=== PATIENT | female | born 1995 | race Caucasian/White ===

== ENCOUNTER 2018-04-01 18:49 | Emergency (ER) | END 2018-04-01 22:38 | disposition home or self-care (01) ==

== ENCOUNTER 2018-04-23 23:03 | Emergency (ER) | END 2018-04-24 01:30 | disposition home or self-care (01) ==

== ENCOUNTER 2018-05-25 09:17 | Emergency (ER) | payer BC ==
[~2018-05-25] VITALS: Ht 167.6 cm; Wt 95.2 kg
[~2018-05-25 09:17] MED LIST: ALBU18HF INHALATION; AMOX1TAB10 PO; GUAI-227 PO; IBUP800T48 PO; PRED20TA PO
[2018-05-25 09:20] VITALS: Ht 167.6 cm; Wt 95.2 kg
[2018-05-25] MEDS ORDERED: IPRATROPIUM (NEB) 0.5 MG/2.5 ML AMP INH STA (09:32)
[2018-05-25] MEDS ORDERED: LEVALBUTEROL (NEB) 1.25 MG/0.5 ML AMP INH STA (09:32)
[2018-05-25] MEDS ORDERED: SOD CHLORIDE 0.9% 1,000 ML IV ONE (10:00)
[2018-05-25] MEDS ORDERED: METHYLPRED. NA SUCC 250 MG in DEXTROSE 5% 50 ML IV ONE (10:00)
[2018-05-25] MEDS ORDERED: ACETAMINOPHEN 325 MG TAB PO ONE (11:00)
[2018-05-25] MEDS ORDERED: IBUPROFEN 600 MG TAB PO ONE (11:00)
[2018-05-25] MEDS ORDERED: CEFTRIAXONE 1 GM/50 ML (PMX) 50 ML IVPB ONE (11:30)
[2018-05-25] MEDS ORDERED: ALBU18HF INHALATION (13:04)
[2018-05-25] MEDS ORDERED: PRED20TA PO (13:04)
[2018-05-25] MEDS ORDERED: AMOX500C2 PO (13:04)
[2018-05-25] MEDS ORDERED: AZIT250T PO (13:04)
[2018-05-25 13:22] VITALS: BP 108/72; PULSE 128; RESP 24
--- NOTE | 2018-05-25 14:49 | ERD ---
ER Documentation Chief Complaint Chief Complaint Complains of SOB Hx of Asthma HPI 22-year-old female patient no significant past medical history presents the ED complaining of cough, wheezing that started last night. Patient reports that she has been here previously for similar symptoms. Reports that she has not followed up with her primary care physician. Denies any fever, chills, nausea, vomiting, diarrhea, neck stiffness. Patient denies any recent travel. Denies taking control. Denies any diagnosis of malignancy. Denies any smoking, alcohol use, drug use. ROS All systems reviewed and are negative except as per history of present illness. Medications Home Meds Active Scripts Albuterol Sulfate* (Ventolin HFA*) 18 Gm Hfa.aer.ad, 2 PUFF INHALATION Q4H, #1 INHALER Prov:UZMA GOOD PA-C 05/25/18 Prednisone* (Prednisone*) 20 Mg Tab, 40 MG PO DAILY for 4 Days, TAB Prov:UZMA GOOD PA-C 05/25/18 Azithromycin* (Zithromax*) 250 Mg Tablet, 250 MG PO .ZPACK DIRECTED, #6 TAB TAKE 500 MG (2 TABS) THE FIRST DAY THEN 250 MG (1 TAB) DAYS 2-5 Prov:UZMA GOOD PA-C 05/25/18 Amoxicillin* (Amoxicillin*) 500 Mg Cap, 1 G PO TID for 10 Days, CAP Prov:UZMA GOOD PA-C 05/25/18 Amoxicillin/Potassium Clav (Amox-Clav 875-125 mg Tablet) 875-125 mg Tab, 1 TAB PO BID for 10 Days, #20 TAB Prov:NICK CASTELLON 04/24/18 Ibuprofen* (Motrin*) 800 Mg Tab, 800 MG PO Q6H PRN for PAIN AND OR ELEVATED TEMP, #30 TAB Prov:NICK CASTELLON 04/24/18 Prednisone* (Prednisone*) 20 Mg Tab, 40 MG PO DAILY for 4 Days, TAB Prov:NICK CASTELLON 04/24/18 Guaifenesin-Dextromethorphan* (Robafen* DM) 100MG/10MG/5ML Liquid, 5 ML PO Q6H PRN for COUGH, #120 ML Prov:NICK CASTELLON 04/24/18 Albuterol Sulfate* (Ventolin HFA*) 18 Gm Hfa.aer.ad, 2 PUFF INHALATION Q4H, #1 INHALER Prov:ALFONSO,KELLY 04/01/18 Prednisone* (Prednisone*) 20 Mg Tab, 40 MG PO DAILY for 4 Days, TAB Prov:ALFONSO,KELLY 04/01/18 Allergies Allergies: Coded Allergies: No Known Allergy (Unverified , 02/21/12) PMhx/Soc History of Surgery: No Anesthesia Reaction: No Hx Neurological Disorder: No Hx Respiratory Disorders: No Hx Cardiac Disorders: No Hx Psychiatric Problems: No Hx Miscellaneous Medical Probl: Yes (bronchitis,sinus infection) Hx Alcohol Use: No Hx Substance Use: No Hx Tobacco Use: No Smoking Status: Never smoker FmHx Family History: No diabetes, No coronary disease Physical Exam Vitals Vital Signs Date Temp Pulse Resp B/P (MAP) Pulse Ox O2 O2 Flow FiO2 Time Delivery Rate 05/25/18 99.7 128 24 108/72 95 Room Air 13:22 (84) 05/25/18 100.2 139 26 105/57 93 Room Air 12:38 (73) 05/25/18 100.8 147 19 96 Room Air 11:51 05/25/18 101.0 10:50 05/25/18 101.0 10:50 05/25/18 101.0 141 20 123/79 96 10:42 (94) 05/25/18 117 22 94 21 10:01 05/25/18 100.0 122 20 134/85 91 09:20 (101) Physical Exam Const: Dik-gbe-hoailvlto, well-nourished. In no acute distress. Head: Atraumatic, normocephalic Eyes: Normal Conjunctiva without injection. No purulent discharge. PERRL. EOMI ENT: Normal external ear. Ear canal without erythema. Tympanic membrane pearly chairez without effusion or bulging. Nasal canal clear with normal turbinates. Moist oropharynx without tonsillar exudates. Non-erythematous pharynx. Uvula midline. No drooling. No trismus. Neck: Full range of motion. No meningismus. No cervical lymphadenopathy. Resp: Clear to auscultation bilaterally. No wheezing, rhonchi, rales, or crackles. No accessory muscle use. No retractions. Cardio: Regular rate and rhythm. No murmurs, rubs or gallops. Abd: Soft, non tender, non distended. Normal bowel sounds. No palpable masses. No rebound tenderness. No guarding. Skin: No petechiae or rashes Back: No midline tenderness. No CVA tenderness. Ext: No cyanosis, or edema. Neur: Awake and alert. Psych: Normal Mood and Affect Results 24 hrs Laboratory Tests Test 05/25/18 09:43 POC Beta HCG, Qualitative NEGATIVE Current Medications Medications Dose Sig/Emerson Start Time Status Last (Trade) Ordered Route PRN Stop Time Admin Dose Reason Admin 50 ml @ ONCE ONCE 05/25/18 DC 05/25/18 Methylprednis 100 mls/hr IV 10:00 10:10 olone Sodium 05/25/18 Succinate 10:29 250 mg/Dextrose Sodium 1,000 ml @ Q1H ONCE 05/25/18 DC 05/25/18 Chloride 1,000 mls/hr IV 10:00 10:10 05/25/18 10:59 5 mg ONCE STAT 05/25/18 DC 05/25/18 Levalbuterol INH 09:32 10:00 (Xopenex 05/25/18 Neb) 09:35 Ipratropium 1 mg ONCE STAT 05/25/18 DC 05/25/18 Leblanc INH 09:32 09:57 (Atrovent 05/25/18 0.02% 09:35 (Neb)) Ibuprofen 600 mg ONCE ONCE 05/25/18 DC 05/25/18 (Motrin) PO 11:00 10:50 05/25/18 11:01 650 mg ONCE ONCE 05/25/18 DC 05/25/18 Acetaminophen PO 11:00 10:50 (Tylenol 05/25/18 Tab) 11:01 Ceftriaxone 50 ml @ ONCE ONCE 05/25/18 DC 05/25/18 Sodium 100 mls/hr IVPB 11:30 11:50 05/25/18 11:59 Procedures/MDM 22-year-old female patient with no significant past medical history presents to ED complaining of cough, wheezing. Patient is afebrile and nontoxic-appearing. Patient started to have a fever here in the ED of 101. Ibuprofen, Tylenol was ordered to further downtrend patient's temperature. Patient's breathing ahsan tment consisted of Atrovent, Albuterol, Solu-Medrol. Patient was noted to have possible infiltrates noted on her chest x-ray, therefore was treated with ceftriaxone 1 g here in the ED as well as 1 L of normal saline. PROCEDURE: XR Chest 1 View. CLINICAL INDICATION: Shortness of breath. Wheeze. Cough. TECHNIQUE: Single view of the chest was obtained. COMPARISON: DR EDWARDS 04/24/2018 FINDINGS: Mediastinum: Within normal limits of size. Lungs: Atelectasis versus minimal infiltrates in the perihilar lower lobes. No pneumothorax. Osseous structures: Intact. Other: None. IMPRESSION: Atelectasis versus minimal infiltrates in the perihilar lower lobes. Patient is a full sentences, that she feels better. Patient will be treated for possible pneumonia on outpatient basis. Low suspicion for pneumothorax, mononucleosis, pulmonary embolism, epiglottitis, otitis media, otitis externa, viral/strep pharyngitis, sinusitis, myocarditis, pericarditis, endocarditis, peritonsillar abscess, mastoiditis, retropharyngeal abscess, meningitis, sepsis, acute abdomen or other emergent conditions. Fluids, rest, and symptomatic treatment are recommended for the management of patient's symptoms. Diagnosis: Cough, wheezing Discharge medications: Prednisone, Amoxicillin, Zithromax, Ventolin Follow up with primary care physician in 1-2 days. Instructed patient to return to the ED sooner for any worsening symptoms. Patient's questions were answered. Patient is hemodynamically stable. Patient understood and agreed with discharge plan. Patient discharged stable. Disclaimer: Inadvertent spelling and grammatical errors are likely due to EHR/dictation software use and do not reflect on the overall quality of patient care. Also, please note that the electronic time recorded on this note does not necessarily reflect the actual time of the patient encounter. Departure Diagnosis: Primary Impression: Cough Additional Impression: Wheezing Condition: Stable Patient Instructions: Bronchitis With Wheezing (Adult), Pneumonia (Adult) Referrals: COMM[facility]ITY CLIN[facility] YOU HAVE RECEIVED A MEDICAL SCREENING EXAM AND THE RESULTS INDICATE THAT YOU DO NOT HAVE A CONDITION THAT REQUIRES URGENT TREATMENT IN THE EMERGENCY DEPARTMENT. FURTHER EVALUATION AND TREATMENT OF YOUR CONDITION CAN WAIT UNTIL YOU ARE SEEN IN YOUR DOCTORS OFFICE WITHIN THE NEXT 1-2 DAYS. IT IS YOUR RESPONSIBILITY TO MAKE AN APPOINTMENT FOR FOLOW-UP CARE. IF YOU HAVE A PRIMARY DOCTOR --you should call your primary doctor and schedule an appointment IF YOU DO NOT HAVE A PRIMARY DOCTOR YOU CAN CALL OUR PHYSICIAN REFERRAL HOTLINE AT IF YOU CAN NOT AFFORD TO SEE A PHYSICIAN YOU CAN CHOSE FROM THE FOLLOWING [facility] [address] [facility] [address] [facility] [address] [facility] [address] [facility] [address] [facility]. [facility] [address] [facility] YOU HAVE RECEIVED A MEDICAL SCREENING EXAM AND THE RESULTS INDICATE THAT YOU DO NOT HAVE A CONDITION THAT REQUIRES URGENT TREATMENT IN THE EMERGENCY DEPARTMENT. FURTHER EVALUATION AND TREATMENT OF YOUR CONDITION CAN WAIT UNTIL YOU ARE SEEN IN YOUR DOCTORS OFFICE WITHIN THE NEXT 1-2 DAYS. IT IS YOUR RESPONSIBILITY TO MAKE AN APPOINTMENT FOR FOLOW-UP CARE. IF YOU HAVE A PRIMARY DOCTOR --you should call your primary doctor and schedule and appointment IF YOU DO NOT HAVE A PRIMARY DOCTOR YOU CAN CALL OUR PHYSICIAN REFERRAL HOTLINE AT . IF YOU CAN NOT AFFORD TO SEE A PHYSICIAN YOU CAN CHOSE FROM THE FOLLOWING [facility]: [facility] [address] [place] [address] [facility] [address] [place] [address] [facility] [address] [place] [address] [facility] URGENT CARE/SPECIALTIES Additional Instructions: Call your primary care doctor TOMORROW for an appointment during the next 2-3 days.See the doctor sooner or return here if your condition worsens before your appointment time. UZMA GOOD PA-C May 25, 2018 14:49
== END 2018-05-25 13:30 | disposition home or self-care (01) ==
LOC: FTE 09:17
DX: J45.901 Unspecified asthma with (acute) exacerbation (principal)
CPT/HCPCS: 71045; 81025; 87400; 94644; 96365; 96375; 99284; J0696; J2930; J7030